=== PATIENT | male | born 1960 | race Caucasian/White ===

== ENCOUNTER 2018-05-05 07:15 | Day surgery (SDC) | payer BC ==
[~2018-05-05 07:15] MED LIST: COSYNTROPIN 0.25 MG VIAL IV ONE; SODIUM CHLORIDE 0.9% 10ML INJ IV ONE
--- OUTSIDE RECORDS SUMMARY | 2018-05-05 07:17 | XMS REPORT ---
:1960 Author Organization [facility] Address [address] [place] [address] Dr. Juárez [address] [place] [id number] Care Team Providers Name Role Phone Unavailable Unavailable Unavailable Problems This patient has no known problems. Allergies, Adverse Reactions, Alerts This patient has no known allergies or adverse reactions. Medications This patient has no known medications.
== END 2018-05-05 09:37 | disposition home or self-care (01) ==
LOC: DS 07:15
PROVIDERS: ATTEND Internal Medicine
DX: E87.1 Hypo-osmolality and hyponatremia (principal)
CPT/HCPCS: 36415; 82024; 82533; 96372; J0834